=== PATIENT | female | born 1990 | race Caucasian/White ===

== ENCOUNTER 2020-05-05 16:08 | Emergency (ER) | payer OTHER, SELFPAY ==
[2020-05-05] VITALS (16 sets, daily range): BP systolic 95–122; BP diastolic 56–81; PULSE 55–94; RESP 13–22; TEMP 37.8; O2SAT 97–99
--- NOTE | 2020-05-05 17:24 | ED_ITS ---
HPI - Dizziness <JOANNA Jeffery-Oleg - Last Filed: 05/05/20 22:27> General Chief Complaint: Dizziness Stated Complaint: palpitations, dizziness Time Seen by Provider: 05/05/20 17:22 Source: patient Mode of arrival: Ambulatory Limitations: no limitations History of Present Illness HPI Narrative: This is a 30-year-old woman recently moved to the area with her and children from the [facility] ( family) with a history of anxiety, endometriosis, sciatica bilaterally. She presents to the emergency department with complaint of dizziness, nausea, palpitations and tunnel vision, with near syncopal episodes that occur with standing up from sitting. She states these have been actually happening for about a year occasionally but in the last month this has been more frequent, particularly in the last couple of days. It has gotten to the point where it is so stressful for her that she is afraid to sit down because it she stands up she know she will experience these symptoms and it has become almost debilitating. She has children at home that she cares for, is not currently taking any anxiety medications, and advises that she does have a long history of anxiety and has previously been told that these symptoms are likely caused by anxiety. She does think that her anxiety has been much more severe in the last 6 weeks or so particularly surrounding the move. She actually had a severe panic attack in late February which was a 1st for her, she has been working on getting established with primary care here locally so that she can get help for her anxiety and start taking medication for this as needed. She also notes she has been having low back pain for about a month now that has not increased in intensity. She says she has a history of sciatica but this pain feels different to her, that she notes that it did begin after she had been doing a lot of packing and moving of boxes. She does not remember any specific trauma or event that started the pain. She notes that she has had a previous C- section and exploratory laparotomy to assess her endometriosis and has been told she has a lot of scar tissue. She also reports she has very frequent urination, with urgency that seems to be exacerbated by lying in certain positions, however this is not new for her. She denies any incontinence, and notes that these symptoms began after she had her (twins) she did have a lot of symptom improvement after doing and practicing pelvic floor exercises. She has taken anxiety medications previously although prefers to use exercise to control her anxiety which has been successful before. She is concerned that there could be something else going on particularly because her symptoms seem to be worsening and increasing in frequency. She denies any chest pain, neck pain, headache, syncope, falls, abdominal pain loss of balance or any other symptoms. MD complaint: dizziness, near syncope and other (Anxiety, tingling in hands, palpitations, tunnel vision when standing) Onset (ago): month(s) (Worsening in the past few weeks) Timing: intermittent (Occurs with standing) Description: near-syncope History of similar episodes: Yes History of trauma: No Severity: moderate Relieving factors: other (Not standing up, standing up slowly) Exacerbating factors: position (Standing up from sitting or lying) Associated symptoms: vision changes (Sometimes tunnel vision temporarily), nausea (Sometimes nausea) and other (Sometimes tingling of hands and feet) Related Data Previous Rx's Medication Instructions Recorded hydroxyzine HCl 25 mg PO QID PRN #60 tab MDD 100mg 05/05/20 ondansetron HCl [Zofran] 4 mg PO Q6H #20 tab 05/05/20 Allergies Allergy/AdvReac Type Severity Reaction Status Date / Time No Known Drug Allergies Allergy Verified 05/05/20 16:20 Review of Systems <Jennifer Richardson PA-C - Last Filed: 05/05/20 22:27> Review of Systems Narrative: GENERAL: Denies chills, fatigue, malaise, fever, sweats. HEENT: Denies sinus pain, ear pain, sore throat, difficulty swallowing, positive for intermittent dizziness associated with standing, positive for occasional tunnel vision associated with standing. RESPIRATORY: Denies dyspnea, cough, wheezing, hemoptysis, sputum. CARDIOVASCULAR: Denies chest pain, positive for intermittent palpitations, negative for orthopnea, edema, GASTROINTESTINAL: Positive for intermittent nausea, negative for vomiting, abdominal pain, diarrhea, constipation, melena. : Denies dysuria, positive for chronic frequency, negative for incontinence, hematuria, urinary retention. MUSCULOSKELETAL: Positive for low back pain/SI joint pain bilaterally, denies weakness, joint pain, or bony pain SKIN: Denies rash, skin lesions, or other NEUROLOGIC: Denies weakness, headache, numbness, change in speech, confusion, seizures, incoordination. PSYCHIATRIC: No concerning psychosocial issues. 12 point review of systems is negative except for those stated above Patient History <Jennifer Richardson PA-C - Last Filed: 05/05/20 22:27> Social History Smoking Status: Never smoker Smoking Status: Never smoker Exam <Jennifer Richardson PA-C - Last Filed: 05/05/20 22:27> Initial Vital Signs Initial Vital Signs: Vital Signs Temperature 100.0 F H 05/05/20 16:17 Pulse Rate 73 05/05/20 16:17 Respiratory Rate 22 05/05/20 16:17 Blood Pressure 122/81 05/05/20 16:17 Pulse Oximetry 99 05/05/20 16:17 <Dariusz Escalona DO - Last Filed: 05/05/20 23:50> Initial Vital Signs Initial Vital Signs: Vital Signs Temperature 100.0 F H 05/05/20 16:17 Pulse Rate 73 05/05/20 16:17 Respiratory Rate 22 05/05/20 16:17 Blood Pressure 122/81 05/05/20 16:17 Pulse Oximetry 99 05/05/20 16:17 Course <Jennifer Richardson PA-C - Last Filed: 05/05/20 22:27> Orders Ordered: ED Orders 05/05/20 17:55 Basic Metabolic Panel Stat Complete Blood Count AUTO DIFF Stat Troponin I Stat Discontinued Medications Hydroxyzine Pamoate (Vistaril) 25 mg PO NOW ONE Stop: 05/05/20 18:33 Last Admin: 05/05/20 18:49 Dose: 25 mg Documented by: KENROY Vital Signs Vital signs: Vital Signs - 8 hr 05/05/20 16:17 05/05/20 17:01 05/05/20 17:30 Temperature 100.0 F H Pulse Rate 73 70 69 Pulse Rate [Orthostatic Lying] Pulse Rate [Orthostatic Sitting] Pulse Rate [Orthostatic Standing] Respiratory Rate 22 Blood Pressure 122/81 Blood Pressure [Orthostatic Lying] Blood Pressure [Orthostatic Sitting] Blood Pressure [Orthostatic Standing] Pulse Oximetry 99 99 99 05/05/20 17:38 05/05/20 17:43 05/05/20 18:00 Temperature Pulse Rate 94 H 71 72 Pulse Rate [Orthostatic Lying] Pulse Rate [Orthostatic Sitting] Pulse Rate [Orthostatic Standing] Respiratory Rate Blood Pressure 106/65 111/60 115/81 Blood Pressure [Orthostatic Lying] Blood Pressure [Orthostatic Sitting] Blood Pressure [Orthostatic Standing] Pulse Oximetry 97 97 98 05/05/20 18:19 05/05/20 18:21 05/05/20 18:22 Temperature Pulse Rate 64 82 75 Pulse Rate [Orthostatic Lying] Pulse Rate [Orthostatic Sitting] Pulse Rate [Orthostatic Standing] Respiratory Rate 14 18 13 Blood Pressure 107/60 108/65 104/73 Blood Pressure [Orthostatic Lying] Blood Pressure [Orthostatic Sitting] Blood Pressure [Orthostatic Standing] Pulse Oximetry 05/05/20 18:25 05/05/20 18:30 05/05/20 19:00 Temperature Pulse Rate 60 58 L Pulse Rate [Orthostatic Lying] 63 Pulse Rate [Orthostatic Sitting] 66 Pulse Rate [Orthostatic Standing] 70 Respiratory Rate 17 15 Blood Pressure 103/60 102/62 Blood Pressure [Orthostatic Lying] 107/60 Blood Pressure [Orthostatic Sitting] 108/65 Blood Pressure [Orthostatic Standing] 104/73 Pulse Oximetry 05/05/20 19:30 05/05/20 19:39 05/05/20 20:00 Temperature Pulse Rate 58 L 55 L 68 Pulse Rate [Orthostatic Lying] Pulse Rate [Orthostatic Sitting] Pulse Rate [Orthostatic Standing] Respiratory Rate 14 18 22 Blood Pressure 95/56 L 95/56 L Blood Pressure [Orthostatic Lying] Blood Pressure [Orthostatic Sitting] Blood Pressure [Orthostatic Standing] Pulse Oximetry 99 05/05/20 20:30 Temperature Pulse Rate 63 Pulse Rate [Orthostatic Lying] Pulse Rate [Orthostatic Sitting] Pulse Rate [Orthostatic Standing] Respiratory Rate 21 Blood Pressure 101/66 Blood Pressure [Orthostatic Lying] Blood Pressure [Orthostatic Sitting] Blood Pressure [Orthostatic Standing] Pulse Oximetry <Dariusz Escalona, - Last Filed: 05/05/20 23:50> Orders Ordered: ED Orders 05/05/20 17:55 Basic Metabolic Panel Stat Complete Blood Count AUTO DIFF Stat Troponin I Stat Discontinued Medications Hydroxyzine Pamoate (Vistaril) 25 mg PO NOW ONE Stop: 05/05/20 18:33 Last Admin: 05/05/20 18:49 Dose: 25 mg Documented by: KENROY Vital Signs Vital signs: Vital Signs - 8 hr 05/05/20 16:17 05/05/20 17:01 05/05/20 17:30 Temperature 100.0 F H Pulse Rate 73 70 69 Pulse Rate [Orthostatic Lying] Pulse Rate [Orthostatic Sitting] Pulse Rate [Orthostatic Standing] Respiratory Rate 22 Blood Pressure 122/81 Blood Pressure [Orthostatic Lying] Blood Pressure [Orthostatic Sitting] Blood Pressure [Orthostatic Standing] Pulse Oximetry 99 99 99 05/05/20 17:38 05/05/20 17:43 05/05/20 18:00 Temperature Pulse Rate 94 H 71 72 Pulse Rate [Orthostatic Lying] Pulse Rate [Orthostatic Sitting] Pulse Rate [Orthostatic Standing] Respiratory Rate Blood Pressure 106/65 111/60 115/81 Blood Pressure [Orthostatic Lying] Blood Pressure [Orthostatic Sitting] Blood Pressure [Orthostatic Standing] Pulse Oximetry 97 97 98 05/05/20 18:19 05/05/20 18:21 05/05/20 18:22 Temperature Pulse Rate 64 82 75 Pulse Rate [Orthostatic Lying] Pulse Rate [Orthostatic Sitting] Pulse Rate [Orthostatic Standing] Respiratory Rate 14 18 13 Blood Pressure 107/60 108/65 104/73 Blood Pressure [Orthostatic Lying] Blood Pressure [Orthostatic Sitting] Blood Pressure [Orthostatic Standing] Pulse Oximetry 05/05/20 18:25 05/05/20 18:30 05/05/20 19:00 Temperature Pulse Rate 60 58 L Pulse Rate [Orthostatic Lying] 63 Pulse Rate [Orthostatic Sitting] 66 Pulse Rate [Orthostatic Standing] 70 Respiratory Rate 17 15 Blood Pressure 103/60 102/62 Blood Pressure [Orthostatic Lying] 107/60 Blood Pressure [Orthostatic Sitting] 108/65 Blood Pressure [Orthostatic Standing] 104/73 Pulse Oximetry 05/05/20 19:30 05/05/20 19:39 05/05/20 20:00 Temperature Pulse Rate 58 L 55 L 68 Pulse Rate [Orthostatic Lying] Pulse Rate [Orthostatic Sitting] Pulse Rate [Orthostatic Standing] Respiratory Rate 14 18 22 Blood Pressure 95/56 L 95/56 L Blood Pressure [Orthostatic Lying] Blood Pressure [Orthostatic Sitting] Blood Pressure [Orthostatic Standing] Pulse Oximetry 99 05/05/20 20:30 Temperature Pulse Rate 63 Pulse Rate [Orthostatic Lying] Pulse Rate [Orthostatic Sitting] Pulse Rate [Orthostatic Standing] Respiratory Rate 21 Blood Pressure 101/66 Blood Pressure [Orthostatic Lying] Blood Pressure [Orthostatic Sitting] Blood Pressure [Orthostatic Standing] Pulse Oximetry MDM - Dizziness <Jennifer Richardson PA-C - Last Filed: 05/05/20 22:27> Differential Diagnosis Differential diagnosis: Likely benign paroxysmal positional vertigo, orthostatic hypotension, vertebral basilar insufficiency, cerebrovascular accident, acute vestibular neuronitis and other (Anxiety, pots, arrhythmia) Medical Records Attestation: I reviewed the patient's medical records. Lab Data Attestation: I reviewed the patient's lab results. Result diagrams: 05/05/20 17:55 05/05/20 17:55 Labs: Lab Results 05/05/20 05/05/20 Range/Units 17:55 17:55 WBC 6.0 (4.5-11.0) X10^3/uL RBC 4.27 (4.0-5.2) X10^6/uL Hgb 13.6 (12.0-16.0) g/dL Hct 38.7 (36-46) % MCV 90.5 (80-100) fL MCH 31.8 (26-34) PG MCHC 35.2 (30-36) % RDW 11.9 (11.6-14.8) % Plt Count 197 (150-400) X10^3/uL Neut % (Auto) 70.4 (50-75) % Lymph % (Auto) 22.0 L (25-40) % Parker % (Auto) 5.5 (3-14) % Eos % (Auto) 1.5 L (2-4) % Baso % (Auto) 0.6 (0-2) % Neut # (Auto) 4200 (0379-1042) /uL Lymph # (Auto) 1300 (6129-1106) /uL Parker # (Auto) 300 (0-900) /uL Eos # (Auto) 100 (0-450) /uL Baso # (Auto) 0 (0-100) /uL Sodium 139 (137-145) mmol/L Potassium 3.7 (3.4-5.1) mmol/L Chloride 104 (98-107) mmol/L Carbon Dioxide 29 (22-32) mmol/L BUN 9 (7-17) mg/dL Creatinine 0.86 (0.52-1.04) mg/dL Estimated GFR > 60.0 (>60) mL/min BUN/Creatinine Ratio 10.5 (6-22) Glucose 96 (70-100) mg/dL Calcium 9.5 (8.4-10.2) mg/dL Troponin I < 0.012 (0.01-0.034) ng/mL Point of Care Testing Test Results Negative Glucose POC 98 Urine Dip Bedside Urine Glucose 100 mg/dl Bedside Urine Bilirubin - Negative Bedside Urine Ketone - Negative Urine Specific [place] 1.015 Bedside Urine Occult Blood - Negative Bedside Urine pH 6.0 Bedside Urine Protein - Negative Bedside Urine Urobilinogen - Negative Bedside Urine Nitrite - Negative Bedside Urine Leukocytes - Negative Esterase ECG Data Attestation: I personally reviewed and interpreted this ECG as follows: Prior ECG tracings: not available for review Interpretation: Normal sinus rhythm with sinus arrhythmia, normal EKG, ventricular rate 69 beats per minute p.r. interval 144 QRS duration 88 QT 402 P axis 64 R axis 41 T axis 48 MDM Narrative Medical decision making narrative: This is a well-appearing 30-year-old with a history of anxiety, endometriosis who presents to the emergency department co mplaining of worsening symptoms of near-syncope with standing, tunnel vision, palpitations. This is been occurring with more frequency in the last few days and has become almost debilitating because she is afraid to sit down for fear of standing up experiencing the symptoms. 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 She was on the awake overnight monitor for over 2 hours in the emergency department and rate remained in normal sinus rhythm the entire time. Orthostatic vital signs performed by ophthalmic medical technician were unremarkable and showed no change. After administration of hydroxyzine for anxiety, With the patient on the monitor I did find that she had a increase in heart rate of greater than 40 beats per minute when she went from lying to standing, and shortly thereafter an increase of 30 beats per minute from sitting to standing, she remained in a sinus rhythm. While it is possible that her symptoms may be partly due to dehydration, I do suspect she may be suffering from POTS however she would need further evaluation to receive this diagnosis. Discussed in great detail possible etiologies of her symptoms including cardiac arrhythmia, pots, anxiety, dehydration. Advised the patient to discuss with her primary care provider which she is actively working to establish, her anxiety, treatment for this, a Holter monitor for longer evaluation of her heart, as well as referral to Cardiology if that is warranted based on primary care provider's discretion. With exception of urinalysis, workup for her back pain that has been present for over a month was deferred to primary care, her urinary frequency which is chronic for years also deferred to primary care, discussed with the patient that depending on her symptoms she may benefit from Urology visit. Patient is comfortable with this plan, she is also provided with Zofran for nausea and hydroxyzine for anxiety short term. Emergency return precautions provided, all questions answered. <Dariusz Escalona, DO - Last Filed: 05/05/20 23:50> Lab Data Labs: Lab Results 05/05/20 05/05/20 Range/Units 17:55 17:55 WBC 6.0 (4.5-11.0) X10^3/uL RBC 4.27 (4.0-5.2) X10^6/uL Hgb 13.6 (12.0-16.0) g/dL Hct 38.7 (36-46) % MCV 90.5 (80-100) fL MCH 31.8 (26-34) PG MCHC 35.2 (30-36) % RDW 11.9 (11.6-14.8) % Plt Count 197 (150-400) X10^3/uL Neut % (Auto) 70.4 (50-75) % Lymph % (Auto) 22.0 L (25-40) % Parker % (Auto) 5.5 (3-14) % Eos % (Auto) 1.5 L (2-4) % Baso % (Auto) 0.6 (0-2) % Neut # (Auto) 4200 (0711-1178) /uL Lymph # (Auto) 1300 (5095-3976) /uL Parker # (Auto) 300 (0-900) /uL Eos # (Auto) 100 (0-450) /uL Baso # (Auto) 0 (0-100) /uL Sodium 139 (137-145) mmol/L Potassium 3.7 (3.4-5.1) mmol/L Chloride 104 (98-107) mmol/L Carbon Dioxide 29 (22-32) mmol/L BUN 9 (7-17) mg/dL Creatinine 0.86 (0.52-1.04) mg/dL Estimated GFR > 60.0 (>60) mL/min BUN/Creatinine Ratio 10.5 (6-22) Glucose 96 (70-100) mg/dL Calcium 9.5 (8.4-10.2) mg/dL Troponin I < 0.012 (0.01-0.034) ng/mL Point of Care Testing Test Results Negative Glucose POC 98 Urine Dip Bedside Urine Glucose 100 mg/dl Bedside Urine Bilirubin - Negative Bedside Urine Ketone - Negative Urine Specific [place] 1.015 Bedside Urine Occult Blood - Negative Bedside Urine pH 6.0 Bedside Urine Protein - Negative Bedside Urine Urobilinogen - Negative Bedside Urine Nitrite - Negative Bedside Urine Leukocytes - Negative Esterase Discharge Plan Departure Patient Disposition: Home Clinical Impression: Heart palpitations, Dizziness, Anxiety, Nausea Discharge Date/Time: 05/05/20 20:48 Instructions: Orthostatic Hypotension, DI for Anxiety -- Adult, DI for Dizziness-Nonvertigo Activity Restrictions/Additional Instructions: Thank you for letting us be part of her care in the emergency department today. We checked labs on you including cardiac enzymes which were in the normal range. We also kept you on a heart monitor for a long period during your emergency department visit, and there were no arrhythmias or abnormalities noted. Your EKG also looked good today. I do think that you may have postural orthostatic tachycardia syndrome or POTS. However this is not a diagnosis that I can make from the emergency department, and I think that it would be valuable for you to have a Holter monitor to assess for heart arrhythmias over a longer period of time, and I would talk to your primary care provider about getting this set up. If needed they can then refer you on to cardiology for any further studies or specialty care. I do think that you are dealing with anxiety as well, though I do not think that this explains all of your symptoms. I have provided you with a prescription for hydroxyzine and antianxiety medication. You do not have to take it as often as prescribed but you can certainly take as much as I have prescribed. I also recommend you talk to her primary care provider about your now chronic back pain as well as your urinary frequency. It is possible that these could be related to her endometriosis but they may want to refer you to see a specialist. If needed I have included information on [facility] resources, but it sounds like you have already made good progress toward setting up a primary care provider here. There is no evidence of an emergent or life threatening illness at this time, but follow up with your doctor in 1-2 days is recommended nonetheless to continue to rule out serious underlying causes of your symptoms. Please call the office for an appointment. Please return to the Emergency Department for any worsening or persistent symptoms. Please take medications as directed. Prescriptions: New ondansetron HCl [Zofran] 4 mg tablet 4 mg PO Q6H Qty: 20 RF: 0 hydroxyzine HCl 25 mg tablet 25 mg PO QID MDD 100mg PRN (Reason: anxiety) Qty: 60 RF: 0 Referrals: [facility] Resources [Outside] <Dariusz Escalona, DO - Last Filed: 05/05/20 23:50> Cosign ED Attending Cosignature Attestation: Dr Escalona Co-Sign Statement: I was available for consultation during this patient's emergency department visit. This chart is signed by myself for administrative purposes only. I did not have direct contact with this patient during this visit. They were seen independently by the APC.
[2020-05-05 18:09] LABS: Add Manual Diff / Slide Review NO; Basophils Absolute Auto 0 /uL (0-100); Basophils Percent Auto 0.6 % (0-2); Eosinophils Absolute Auto 100 /uL (0-450); Eosinophils Percent Auto 1.5 % (2-4); Hematocrit 38.7 % (36-46); Hemoglobin 13.6 g/dL (12.0-16.0); Lymphocytes Absolute Auto 1300 /uL (1100-4500); Mean Corpuscular HGB Conc 35.2 % (30-36); Mean Corpuscular Hemoglobin 31.8 PG (26-34); Mean Corpuscular Volume 90.5 fL (80-100); Monocytes Absolute Auto 300 /uL (0-900); Monocytes Percent Auto 5.5 % (3-14); Neutrophils Absolute Auto 4200 /uL (1500-7000); Neutrophils Percent Auto 70.4 % (50-75); Platelet Count 197 X10^3/uL (150-400); Red Blood Cell Count 4.27 X10^6/uL (4.0-5.2); Red Cell Distribution Width 11.9 % (11.6-14.8)
[2020-05-05 18:29] LABS: BUN Creatinine Ratio 10.5 (6-22); Blood Urea Nitrogen 9 mg/dL (7-17); Calcium 9.5 mg/dL (8.4-10.2); Carbon Dioxide 29 mmol/L (22-32); Chloride 104 mmol/L (98-107); Estimated Glomerular Filt Rate > 60.0 mL/min (>60); Glucose 96 mg/dL (70-100); HEMOLYSIS < 15 (0-50); Potassium 3.7 mmol/L (3.4-5.1); Sodium 139 mmol/L (137-145)
[2020-05-05 18:40] LABS: Troponin I < 0.012 ng/mL (0.01-0.034)
[2020-05-05] MEDS: hydrOXYzine pamoate 25 MG CAPSULE PO (18:49)
== END 2020-05-05 20:48 | disposition home or self-care (01) ==
PROVIDERS: Emergency Provider Student in an Organized Health Care Education/Training Program
DX: R00.2 Palpitations (principal); F41.9 Anxiety disorder, unspecified; R42 Dizziness and giddiness; R11.0 Nausea; M54.5 Low back pain; H53.489 Generalized contraction of visual field, unspecified eye
CPT/HCPCS: 36415; 80048; 81003; 81025; 82962; 84484; 85025; 93005; 93010; 99283; 99284

== ENCOUNTER → 2020-06-16 15:08 | Outpatient (CLI) | payer OTHER, SELFPAY ==
--- NOTE | 2020-07-06 08:00 | P.HOLT.S_ITS ---
[facility] Report Referral & Results Date Patient Seen: 06/16/20 Requesting provider: Stefano Acosta Indication: Palpitations Duration of monitoring (days): 3 Diary information: There were 46 patient triggered events and 37 patient diary entries Patient triggered events were associated with (within 45 seconds) sinus rhythm, PVCs, and PACs Patient diary events were associated with (within 45 seconds) sinus rhythm, PVCs, and PACs Data: Minimum heart rate identified was 42 beats per minute at 02:39 on 06/19/2020 Maximum heart rate was 135 beats per minute at 11:52 on 06/17/2020 Less than 1% of identified beats or either ventricular supraventricular ectopic in origin Impression: Overall basically normal 3 day surveillance monitor. Rare PACs and PVCs identified but difficult to correlate with any specific reported symptom
== END ==
PROVIDERS: PCP Student in an Organized Health Care Education/Training Program; Referring Provider Student in an Organized Health Care Education/Training Program; Visit Provider Student in an Organized Health Care Education/Training Program
DX: R00.2 Palpitations (principal); R42 Dizziness and giddiness
CPT/HCPCS: 0296T; 0298T

== ENCOUNTER → 2020-07-20 15:47 | Outpatient (CLI) | payer OTHER, SELFPAY ==
--- NOTE | 2020-07-20 15:48 | DI.RAD.S_ITS ---
PROCEDURE: XR FOOT LT MIN 3V INDICATIONS: left foot pain after running 5k TECHNIQUE: 3 views of the foot were acquired. COMPARISON: None. FINDINGS: Bones: No fractures or dislocations. No suspicious bony lesions. No periosteal reaction or obvious cortical thickening of the metatarsals to suggest stress reaction. Soft tissues: No tibiotalar joint effusion. Achilles tendon appears normal. IMPRESSION: No acute finding. Dictated by: Asad Pressley M.D. on 07/20/2020 at 16:20 Approved by: Asad Pressley M.D. on 07/20/2020 at 16:20
== END ==
PROVIDERS: PCP Student in an Organized Health Care Education/Training Program; Referring Provider Nurse Practitioner Family; Visit Provider Nurse Practitioner Family
DX: M79.672 Pain in left foot (principal)
CPT/HCPCS: 73630

== ENCOUNTER → 2020-11-04 09:32 | Outpatient (CLI) | payer OTHER, SELFPAY ==
[2020-11-04 10:14] LABS: Hematocrit 42.3 % (36-46); Hemoglobin 14.6 g/dL (12.0-16.0); Mean Corpuscular HGB Conc 34.4 % (30-36); Mean Corpuscular Hemoglobin 31.4 PG (26-34); Mean Corpuscular Volume 91.1 fL (80-100); Platelet Count 210 X10^3/uL (150-400); Red Blood Cell Count 4.65 X10^6/uL (4.0-5.2); Red Cell Distribution Width 12.5 % (11.6-14.8); White Blood Cell Count 2.7 X10^3/uL (4.5-11.0)
[2020-11-04 10:15] LABS: Reticulocyte Count, Percent 1.6 % (1.06-2.63)
[2020-11-04 10:42] LABS: Follicle Stimulating Hormone 6.46 mIU/mL
[2020-11-04 10:44] LABS: Neutrophils Absolute Manual 1512 /uL (3000-5900); RBC Morphology Normal Morphology; Total Cells Counted 100
[2020-11-04 10:48] LABS: Prolactin 18.5 ng/mL (3.0-18.6)
[2020-11-04 10:53] LABS: HEMOLYSIS < 15 (0-50); Iron 157 ug/dL (37-170)
[2020-11-04 11:06] LABS: Ferritin 16 ng/mL (6-137); Percent Iron Saturation 42 % (15-50); Total Iron Binding Capacity 370 ug/dL (265-497); Transferrin 291 mg/dL (206-381)
[2020-11-04 11:36] LABS: Folate > 20.0 ng/mL (2.76-20.0); Vitamin B12 593 pg/mL (239-931)
[2020-11-09 10:46] LABS: Estradiol 23.4 pg/mL (.); Estriol,Serum <0.1 ng/mL (.); Estrone,Serum 83 pg/mL (.)
== END ==
PROVIDERS: PCP Student in an Organized Health Care Education/Training Program; Referring Provider Student in an Organized Health Care Education/Training Program; Visit Provider Student in an Organized Health Care Education/Training Program
DX: N80.9 Endometriosis, unspecified (principal); Z78.9 Other specified health status
CPT/HCPCS: 36415; 82607; 82670; 82677; 82679; 82728; 82746; 83001; 83540; 83550; 84146; 84443; 85025; 85045

== ENCOUNTER → 2021-10-28 14:07 | Outpatient (CLI) | payer OTHER, SELFPAY ==
[2021-10-28 17:03] LABS: Add Manual Diff / Slide Review NO; Basophils Absolute Auto 0 /uL (0-100); Basophils Percent Auto 0.5 % (0-2); Eosinophils Absolute Auto 300 /uL (0-450); Eosinophils Percent Auto 4.6 % (2-4); Hematocrit 39.2 % (36-46); Hemoglobin 13.8 g/dL (12.0-16.0); Lymphocytes Absolute Auto 1300 /uL (1100-4500); Lymphocytes Percent Auto 22.3 % (25-40); Mean Corpuscular Hemoglobin 31.7 PG (26-34); Mean Corpuscular Volume 90.4 fL (80-100); Monocytes Absolute Auto 600 /uL (0-900); Monocytes Percent Auto 9.5 % (3-14); Neutrophils Absolute Auto 3700 /uL (1500-7000); Neutrophils Percent Auto 63.1 % (50-75); Platelet Count 194 X10^3/uL (150-400); Red Blood Cell Count 4.34 X10^6/uL (4.0-5.2); Red Cell Distribution Width 12.6 % (11.6-14.8); White Blood Cell Count 5.8 X10^3/uL (4.5-11.0)
[2021-10-28 17:30] LABS: HEMOLYSIS < 15 (0-50); Iron 36 ug/dL (37-170)
[2021-10-28 17:48] LABS: Ferritin 28 ng/mL (6-137)
[2021-10-28 17:49] LABS: Percent Iron Saturation 10 % (15-50); Total Iron Binding Capacity 365 ug/dL (265-497); Transferrin 298 mg/dL (206-381)
[2021-10-28 18:04] LABS: TSH w/ Reflex to FT4 1.06 uIU/mL (0.47-4.68)
[2021-10-28 18:19] LABS: Folate > 20.0 ng/mL (2.76-20.0); Vitamin B12 594 pg/mL (239-931)
== END ==
PROVIDERS: PCP Student in an Organized Health Care Education/Training Program; Referring Provider Student in an Organized Health Care Education/Training Program; Visit Provider Student in an Organized Health Care Education/Training Program
DX: Z78.9 Other specified health status (principal); F41.9 Anxiety disorder, unspecified
CPT/HCPCS: 36415; 82607; 82728; 82746; 83540; 83550; 84443; 85025

== ENCOUNTER → 2022-02-10 07:53 | Outpatient (CLI) | payer OTHER, SELFPAY ==
[2022-02-10 09:17] LABS: Hematocrit 37.1 % (36-46); Hemoglobin 12.9 g/dL (12.0-16.0); Mean Corpuscular HGB Conc 34.9 % (30-36); Mean Corpuscular Hemoglobin 31.8 PG (26-34); Mean Corpuscular Volume 91.2 fL (80-100); Platelet Count 171 X10^3/uL (150-400); Red Blood Cell Count 4.07 X10^6/uL (4.0-5.2); Red Cell Distribution Width 12.9 % (11.6-14.8); White Blood Cell Count 7.2 X10^3/uL (4.5-11.0)
[2022-02-10 09:55] LABS: Glucose Fasting 79 mg/dL (70-100)
[2022-02-10 10:18] LABS: Glucose Tol Interpretation INTERPRETATION
[2022-02-10 10:38] LABS: Glucose 1 Hour 126 mg/dL (70-170)
[2022-02-10 11:06] LABS: Glucose 2 Hour 94 mg/dL (70-140)
== END ==
PROVIDERS: PCP Student in an Organized Health Care Education/Training Program; Referring Provider Nurse Practitioner Obstetrics & Gynecology; Visit Provider Nurse Practitioner Obstetrics & Gynecology
DX: Z34.90 Encounter for supervision of normal pregnancy, unspecified, unspecified trimester (principal); Z13.1 Encounter for screening for diabetes mellitus; Z3A.26 26 weeks gestation of pregnancy
CPT/HCPCS: 36415; 82951; 82952; 85027

== ENCOUNTER → 2022-10-04 14:55 | Outpatient (CLI) | payer OTHER, SELFPAY ==
[2022-10-04 16:38] LABS: Hematocrit 39.8 % (36-46); Hemoglobin 13.7 g/dL (12.0-16.0); Mean Corpuscular HGB Conc 34.4 % (30-36); Mean Corpuscular Hemoglobin 30.2 PG (26-34); Mean Corpuscular Volume 87.7 fL (80-100); Platelet Count 193 X10^3/uL (150-400); Red Blood Cell Count 4.54 X10^6/uL (4.0-5.2); Red Cell Distribution Width 12.8 % (11.6-14.8); White Blood Cell Count 4.7 X10^3/uL (4.5-11.0)
[2022-10-04 17:34] LABS: TSH w/ Reflex to FT4 1.85 uIU/mL (0.47-4.68)
[2022-10-04 17:56] LABS: Vitamin B12 665 pg/mL (239-931)
== END ==
PROVIDERS: PCP Student in an Organized Health Care Education/Training Program; Referring Provider Student in an Organized Health Care Education/Training Program; Visit Provider Student in an Organized Health Care Education/Training Program
DX: R53.83 Other fatigue (principal); R63.5 Abnormal weight gain
CPT/HCPCS: 36415; 82607; 84443; 85027

== ENCOUNTER → 2023-02-07 15:15 | Outpatient (CLI) | payer OTHER, SELFPAY ==
--- NOTE | 2023-02-07 15:17 | DI.RAD.S_ITS ---
PROCEDURE: XR FOOT RT MIN 3V INDICATIONS: pain over the 3, 4, 5 metatarsals. no inj. TECHNIQUE: 3 weight-bearing views of the foot were acquired. COMPARISON: [facility], CR, XR FOOT LT MIN 3V, 07/20/2020, 15:53. FINDINGS: Bones: No fractures or dislocations. No suspicious bony lesions. Soft tissues: No tibiotalar joint effusion. Achilles tendon appears normal. IMPRESSION: Right foot without acute fracture or malalignment. If there are persistent symptoms or clinical suspicion for pathology, then repeat radiographs or advanced imaging (CT or MRI) may be considered for further evaluation. Dictated by: Jakob Edwards M.D. on 02/07/2023 at 17:45 Approved by: Jakob Edwards M.D. on 02/07/2023 at 17:45
== END ==
PROVIDERS: PCP Pediatrics; Referring Provider Family Medicine; Visit Provider Family Medicine
DX: M79.671 Pain in right foot (principal)
CPT/HCPCS: 73630